=== PATIENT | female | born 1955 | race Caucasian/White ===

== ENCOUNTER → 2016-06-19 | Outpatient (CLI) | payer BC ==
[~2016-06-19] MED LIST: ASPIRIN E.C. 8181 MG PO; COZAAR 50MG50 MG/TAB PO; DYAZIDE 25 MG-31 CAP PO; LEXAPRO20 MG PO; PRILOSEC 20MG20 MG PO; TOPROL XL 25MG25 MG PO
== END ==
LOC: COL.CARD 14:41 → COL.LAB 14:41 → COL.CARD 06-24 06:30
DX: R07.89 Other chest pain (principal); I10 Essential (primary) hypertension

== ENCOUNTER → 2016-06-24 | Outpatient (CLI) | payer BC ==
[~2016-06-24] VITALS: Ht 149.9 cm; Wt 62.0 kg
[2016-06-24 06:31] VITALS: BP 129/88; PULSE 76
[2016-06-24 07:51] VITALS: BP 164/95; PULSE 123
[2016-06-24 07:52] VITALS: BP 144/87; PULSE 122
[2016-06-24 07:53] VITALS: BP 147/91; PULSE 114
[2016-06-24 07:54] VITALS: BP 149/88; PULSE 108
[2016-06-24 07:55] VITALS: BP 149/88; PULSE 102
== END ==
LOC: COL.CARD 06:17
DX: R07.89 Other chest pain (principal); I10 Essential (primary) hypertension
CPT/HCPCS: A9502; J2785

== ENCOUNTER → 2016-09-30 | Outpatient (CLI) | payer BC | LOC: MC.RAD 07:30 | DX: Z12.31 Encounter for screening mammogram for malignant neoplasm of breast (principal) ==

== ENCOUNTER 2017-03-14 06:33 | Day surgery (SDC) | payer BC ==
[~2017-03-14] VITALS: Ht 149.9 cm; Wt 63.0 kg
[2017-03-14] VITALS (7 sets, daily range): BP systolic 88–128; BP diastolic 52–98; PULSE 66–95; TEMP 97–97.4
[2017-03-14] MEDS ORDERED: LIPITOR 10MG10 MG PO (06:55)
== END 2017-03-14 10:10 | disposition home or self-care (01) ==
LOC: SDCO 06:33
DX: K92.1 Melena (principal); K64.1 Second degree hemorrhoids; K57.30 Diverticulosis of large intestine without perforation or abscess without bleeding; F41.9 Anxiety disorder, unspecified; I10 Essential (primary) hypertension; E78.00 Pure hypercholesterolemia, unspecified; Z83.71 Family history of colonic polyps
CPT/HCPCS: OP; J2250; J3010; J7030

== ENCOUNTER 2017-10-13 12:07 | Emergency (ER) | payer BC ==
[~2017-10-13] VITALS: Ht 149.9 cm; Wt 63.6 kg
[~2017-10-13 12:07] MED LIST changes: +LIPITOR 10MG10 MG PO
[2017-10-13 12:10] VITALS: TEMP 98.1
[2017-10-13 13:11] LABS: BASO # 0.1 (0.0-0.2); BASO % 0.8 % (0.0-2.0); EOS # 0.4 (0.0-0.7); EOS % 6.5 % (0-4.0); GRAN # 4.2 (1.4-6.5); GRAN % 64.3 % (42.2-75.2); HEMATOCRIT 40.7 % (37.0-47.0); HEMOGLOBIN 14.2 g/dl (12.5-16.0); LYMPH # 1.3 (1.2-3.4); LYMPH % 20.4 % (20.0-51.0); MEAN CELL VOLUME 90 fl (80.0-100.0); MEAN CORPUSCULAR HEMOGLOBIN 32 pg (27.0-31.0); MEAN CORPUSCULAR HGB CONC 35 g/dl (33.0-37.0); MEAN PLATELET VOLUME 9.7 fl (7.4-10.4); MONO # 0.5 (0.1-0.6); MONO % 7.1 % (1.7-9.3); PLATELET COUNT 274 K/mm3 (130-400); RED BLOOD COUNT 4.51 M/mm3 (4.10-5.30); REDCELL DISTRIBUTION WIDTH-CV 12.4 % (11.5-14.5)
[2017-10-13 13:24] LABS: ALANINE AMINOTRANSFERASE 30 U/L (9-52); ALBUMIN 4.2 gm/dL (3.5-5.0); ALKALINE PHOSPHATASE 82 U/L (50-136); ANION GAP 16 mmol/L (7-16); AST,SGOT 31 U/L (15-37); BILIRUBIN,TOTAL 0.8 mg/dL (0.0-1.0); BLOOD UREA NITROGEN 17 mg/dL (7-17); CALCIUM 9.9 mg/dL (8.4-10.2); CARBON DIOXIDE 23 mmol/L (22-30); CHLORIDE 102 mmol/L (98-107); CREATININE, serum 0.88 mg/dL (0.52-1.25); GLUCOSE 86 mg/dL (74-106); LIPASE 63 U/L (23-300); POTASSIUM 3.8 mmol/L (3.4-5.0); SODIUM 142 mmol/L (137-145); TOTAL PROTEIN 8.5 gm/dL (6.4-8.2)
[2017-10-13 13:39] LABS: TROPONIN-I < 0.012 ng/mL (0.000-0.034)
[2017-10-13 16:19] VITALS: BP 125/78; PULSE 65
== END 2017-10-13 16:20 | disposition home or self-care (01) ==
LOC: COL.ER 12:07
PROVIDERS: Emergency Medicine
DX: I20.9 Angina pectoris, unspecified (principal); Z98.890 Other specified postprocedural states; Z79.82 Long term (current) use of aspirin
CPT/HCPCS: J7030

== ENCOUNTER → 2018-11-18 | Outpatient (CLI) | payer BC | LOC: MC.RAD 11:06 | DX: Z12.31 Encounter for screening mammogram for malignant neoplasm of breast (principal) ==